=== PATIENT | male | born 1950 | race Caucasian/White ===

== ENCOUNTER → 2020-09-28 | Outpatient (CLI) | payer OTHER ==
[~2020-09-28] MED LIST: 5-Htp50 MG PO; ACET325 PO; BRIM.15SO LEFTEYE; CEPH500 PO; CHOL10002 PO; CLOT1TC TOP; CRUTCH4 USE; DOCU100 PO; DORZOPSO LEFTEYE; ENOX40I SC; FISH OIL 1,2001 EAC7 PO; HYDACE10B PO; HYDACE5 PO; HYDACE5325 PO; IBUP400 PO; IBUP600 PO; LINZESS290 MCG PO; MELA3 PO; MELO7.5 PO; NAPR500 PO; SULTRIDS PO; TIMO.5OPSO BOTHEYES; TIMOLOL MALEATE BOTHEYES; TRAM50 PO; VITAMIN B PO; VITAMIN B12-FO1 EACH PO; VITAMIN D; ZINC15 PO
[2020-09-28 13:18] LABS: Stool Occult Bld Immuno 1 Positive (NEGATIVE)
== END | disposition home or self-care (01) ==
LOC: LAB 08:00 → LAB SHORT 08:00
PROVIDERS: Family Medicine
DX: Z12.11 Encounter for screening for malignant neoplasm of colon (principal)
CPT/HCPCS: G0328

== ENCOUNTER 2020-12-05 10:45 | Day surgery (SDC) | payer OTHER ==
[~2020-12-05] VITALS: Ht 167.6 cm; Wt 105.5 kg
[~2020-12-05 10:45] MED LIST changes: -FISH OIL 1,2001 EAC7 PO
[2020-12-05] MEDS ORDERED: FISH OIL 1,2001 EAC7 PO (12:03)
== END 2020-12-05 13:36 | disposition home or self-care (01) ==
LOC: ORSCSDS 10:45
PROVIDERS: Internal Medicine Gastroenterology
PROC: 0DBM8ZX Excision of Descending Colon, Via Natural or Artificial Opening Endoscopic, Diagnostic (ICD-10-PCS; principal; 2020-12-05 12:15)
DX: K92.1 Melena (principal); K59.00 Constipation, unspecified; R10.32 Left lower quadrant pain; D12.4 Benign neoplasm of descending colon; K64.8 Other hemorrhoids; K57.30 Diverticulosis of large intestine without perforation or abscess without bleeding; K62.2 Anal prolapse; E78.5 Hyperlipidemia, unspecified; E66.9 Obesity, unspecified; Z68.38 Body mass index [BMI] 38.0-38.9, adult; Z79.899 Other long term (current) drug therapy
CPT/HCPCS: 88305; J2704; J7120

== ENCOUNTER → 2022-05-25 | Outpatient (CLI) | payer OTHER ==
[~2022-05-25] MED LIST changes: +FISH OIL 1,2001 EAC7 PO
== END | disposition home or self-care (01) ==
DX: I10 Essential (primary) hypertension (principal)